=== PATIENT | female | born 1985 | race Native Hawaiian/Other Pacific Islander ===

== ENCOUNTER 2016-10-05 23:26 | Emergency (ER) | payer BC, OTHER ==
[2016-10-06 01:33] VITALS: BP 124/85
[2016-10-06] MEDS ORDERED: NORCO 10/325 PO ONE (05:01)
--- NOTE | 2016-10-06 05:05 | Emergency Department Report ---
HPI - General Chief Complaint: Skin Rash Time Seen by Provider: 10/06/16 04:37 - HPI HPI: Patient is a 31-year-old female presents to ED complaining of right breast pain and redness 3 weeks. Patient states she has not taken any medication for the patient. Patient states today she had some pus coming out of the right wrist. Patient states breast discharge with yellowish and some blood patient is a discharge is reduced with yellowish to clear tinged discharge. Patient states she has an appointment with the primary care doctor on Friday the and is scheduled for an ultrasound on October 09. Patient describes been asked throughout the nature. ED Past Medical Hx - Past Medical History Previous Medical History?: No - Surgical History Past Surgical History?: Yes Additional Surgical History: Depo inserted - Social History Smoking Status: Never Smoker Substance Use Type: None - Medications Home Medications: Home Medications Medication Instructions Recorded Confirmed Last Taken Type Butalb/Acetamin/Caff 50-325-40 1 each PO Q4H PRN #30 tablet 06/15/14 Unknown Rx [Fioricet] Ibuprofen [Motrin] 800 mg PO Q8H PRN #30 tablet 06/15/14 Unknown Rx Propylene Glycol/Peg 400 15 ml OS PRN PRN #1 drops 06/15/14 Unknown Rx [Lubricant Eye Drops] Valacyclovir HCl [Valtrex] 1,000 mg PO TID #7 day 06/15/14 Unknown Rx predniSONE [Deltasone] 40 mg PO QDAY 7 Days 06/15/14 Unknown Rx Acetaminophen/Codeine [Tylenol #3] 1 tab PO Q6H PRN #12 tab 10/06/16 Unknown Rx Clindamycin [Clindamycin CAP] 600 mg PO BID #20 capsule 10/06/16 Unknown Rx ED Review of Systems ROS: Stated complaint: HEADACHE, BREST PAIN, CHILLS Other details as noted in HPI Constitutional: denies: chills, fever Eyes: denies: eye pain, eye discharge, vision change ENT: denies: ear pain, throat pain Respiratory: denies: cough, shortness of breath, wheezing Cardiovascular: denies: chest pain, palpitations Endocrine: no symptoms reported. denies: excessive sweating Gastrointestinal: denies: abdominal pain, nausea, vomiting, diarrhea, constipation, hematemesis Genitourinary: denies: urgency, dysuria, frequency, hematuria, discharge, dyspareunia Musculoskeletal: denies: back pain, joint swelling, arthralgia Skin: denies: rash, lesions, pruritus Neurological: denies: headache, weakness, numbness, paresthesias, confusion, abnormal gait Psychiatric: denies: anxiety, depression Hematological/Lymphatic: denies: easy bleeding, easy bruising Physical Exam - Physical Exam Vital Signs: Vital Signs 10/06/16 01:29 Temperature 99.0 F Pulse Rate 80 Respiratory 18 Rate Blood Pressure 124/85 [Left] O2 Sat by Pulse 99 Oximetry Physical Exam: GENERAL: Alert and oriented x3, no apparent distress, Normal Gait, atraumatic. HEAD: Head is normocephalic and a-traumatic. EYES: Extra ocular muscles are intact. Pupils are equal, round, and reactive to light and accommodation. EARS: symetrical, atraumatic. gross auditory nml bilaterally. NOSE: Nose symetrical, Nontender,Nares appeared normal. MOUTH:Mouth is well hydrated and without lesions. Patent airways. NECK: Supple. Non edematous, No carotid bruits. No lymphadenopathy or thyromegaly. LUNGS: Symetrical with respiration, No wheezing, no rales or crackles, CTAB. HEART: S1, S2 present, regular rate and rhythm without murmur, no rubs, no gallops. ABDOMEN: No organomegaly was noted,Positive bowel sounds, soft, and non- distended. . Nontender to palpation on all Quadrants, NO CVA tenderness. BREAST: Symetrical, Supple bilaterally, right breast area surrounded by erythematous 4-5 cm in diameter around the areola. Active complaining lesion at 3:00 in respect to consider nipple. Severly tenderness to palpation. Drainage with manipulation of right areola. 5-6 cm mass palpated at 1o clock. EXTREMITIES/MUSCULOSKELETAL: No cyanosis, clubbing, rash, lesions or edema. Full ROM bilaterally. UE/LE Pulses 2+ bilaterally. PSYCHIATRIC: Mood is congruent with affect, denies suicidal or homicidal ideations. SKIN: Warm and dry, No lesions, No ulceration or induration present. ED Course Vital Signs 10/06/16 01:29 Temperature 99.0 F Pulse Rate 80 Respiratory 18 Rate Blood Pressure 124/85 [Left] O2 Sat by Pulse 99 Oximetry ED Medical Decision Making - Medical Decision Making 31-year-old female presents with Right breast cellulitis. ED course: Patient received 1 dose of Donald. Warm compression applied to the right breast. After 1 compression applied. More clear yellowish discharge from the open lesion. Discussed the patient is mass palpated in need for mammogram and patient states she has an appointment on Friday for diagnostic mammogram/US. And then follow up with the primary care. Vital signs stable. Patient is in no acute or respiratory distress. Discussed with patient follow-up with primary care physician. Discussed the patient and take antibiotic as prescribed and take pain medication as prescribed. Patient states she understands and states she just needed something for pain because it was unbearable Critical care attestation.: If time is entered above; I have spent that time in minutes in the direct care of this critically ill patient, excluding procedure time. ED Disposition Clinical Impression: Cellulitis of female breast, Cellulitis of right breast, Mass of right breast Disposition: DISCHARGED TO HOME OR SELFCARE Is pt being admited?: No Does the pt Need Aspirin: No Condition: Stable Instructions: Cellulitis (ED), Breast Mass (ED) Additional Instructions: keep yor appointment with her primary care on Friday and ultrasound appointment for October Prescriptions: Acetaminophen/Codeine [Tylenol #3] 1 tab PO Q6H PRN #12 tab PRN Reason: Pain Clindamycin [Clindamycin CAP] 600 mg PO BID #20 capsule Referrals: PRIMARY CARE, [Primary Care Provider] - 3-5 Days Forms: Accompanied Note, Work/School Release Form(ED) Time of Disposition: 06:34
== END 2016-10-06 07:06 | disposition home or self-care (01) ==
LOC: ED 23:26
DX: N61.0 Mastitis without abscess (principal)
CPT/HCPCS: 99282

== ENCOUNTER 2016-11-15 06:25 | Day surgery (SDC) | payer OTHER ==
[~2016-11-15 06:25] MED LIST: ANCEF/STERILE WATER 2 GM/20 ML 2 GM/20 ML SYRINGE IV NR; ceFAZolin 2 GM in NACL 0.9% 100 ML IV NR
--- NOTE | 2016-11-15 07:53 | Anesthesia Consultation ---
Anesthesia Consult and Med Hx - Airway Anesthetic Teeth Evaluation: Good ROM Head & Neck: Adequate Mental/Hyoid Distance: Adequate Mallampati Class: Class II Intubation Access Assessment: Good - Pulmonary Exam CTA: Yes - Cardiac Exam Cardiac Exam: RRR - Pre-Operative Health Status ASA Pre-Surgery Classification: ASA1 Proposed Anesthetic Plan: General (no previous anesthesia)
--- NOTE | 2016-11-15 07:53 | Anesthesia Day of Surgery ---
Anesthesia Day of Surgery - Day of Surgery Patient Examined: Yes Patient H&P Reviewed: Yes Patient is NPO: Yes
[2016-11-15] MEDS ORDERED: ceFAZolin 2 GM in NACL 0.9% 100 ML IV ONE (08:00)
[2016-11-15] MEDS ORDERED: PEPCID IV NR (08:10)
[2016-11-15] MEDS ORDERED: NACL 0.9% 1000 ML 1,000 ML IV SCH (08:10)
[2016-11-15] MEDS ORDERED: VERSED IV NR (08:10)
[2016-11-15] MEDS ORDERED: DIPRIVAN 10 MG/ML IV ONE (08:20)
[2016-11-15] MEDS ORDERED: XYLOCAINE MPF 2% ONE (08:21)
[2016-11-15] MEDS ORDERED: DILAUDID ONE (08:21)
[2016-11-15] MEDS ORDERED: MARCAINE 0.5% 30 ML INFILTRATI ONE (08:50)
[2016-11-15] MEDS ORDERED: XYLOCAINE 1%/ EPI 1:100,000 INFILTRATI ONE ×3 (08:50→09:23)
[2016-11-15] MEDS ORDERED: QUELICIN ONE (09:01)
[2016-11-15] MEDS ORDERED: DECADRON ONE (09:01)
[2016-11-15] MEDS ORDERED: MARCAINE 0.5% INFILTRATI ONE ×2 (09:23)
[2016-11-15] MEDS ORDERED: NACL 0.9% IR ONE (09:23)
[2016-11-15] MEDS ORDERED: ZOFRAN ONE (09:38)
--- NOTE | 2016-11-15 09:58 | Discharge Summary ---
Short Stay Discharge Plan Activity: other (december d/c when stable. reg diet. home health. d/c packing Friday am. irrigate wd with 50% h202/NS anibal pack with mesalt qd) Weight Bearing Status: Full Weight Bearing Diet: regular Wound: per wound nurse instructions Follow up with: LALEN GEORGE MD [Staff Physician] - 11/20/16
--- NOTE | 2016-11-15 10:26 | Operative Report ---
PREOPERATIVE DIAGNOSIS: Draining a large right breast mass, rule out abscess/mastitis. POSTOPERATIVE DIAGNOSIS: Draining a large right breast mass, rule out abscess/mastitis. FINDINGS: A very extensive friable as well as indurated mass with purulence throughout the area. The mass itself grossly is measured approximately 5-6 cm. A large portion of it was removed en bloc. Aerobic and anaerobic cultures were taken. Tissues also being sent fresh to pathology for frozen section as well as tissue cultures and permanent pathology. PROCEDURE: Wide excision and debridement of right breast mass as well as drainage and packing. SURGEON: Rosado MD ANESTHESIA: General. ESTIMATED BLOOD LOSS: Minimal. DRAINS: No drains. COMPLICATIONS: No complications. DESCRIPTION OF PROCEDURE: The patient was taken to the operating room, prepped and draped in usual sterile fashion. A 15-blade was used to make an elliptical incision in the areolar margin over the sinus tract drainage of the right breast mass previously described. Double skin hooks and subsequently Shannon retractors and [employer] were used to retract the skin and breast tissue. Electrocautery as well as sharp and blunt dissection were used to slowly dissect the majority of the inflamed infected tissue. The area was then irrigated copiously and dried. Hemostasis obtained with electrocauterization. Again, this tissue was sent fresh to pathology for frozen and cultures as well as permanent pathology. The abscess cavity was then packed with 2 inch iodoform gauze. A 0.5% Marcaine with epinephrine was infiltrated over the area for postoperative pain relief. Fluffs and pressure dressings applied. The patient tolerated the procedure well and left the OR in stable condition. JOB# [id number] ROSITA/LEANDRO
[2016-11-15] MEDS ORDERED: DILAUDID IV PRN (10:34)
--- NOTE | 2016-11-15 10:51 | Post Anesthesia Evaluation ---
- Post Anesthesia Evaluation Patient Participated: Yes Airway Patent: Yes Stable Respiratory Function: Yes Nausea/Vomiting: No Temp > 96.8F: Yes Pain Manageable: Yes Adequeate Hydration: Yes Anesthesia Complications: No
[2016-11-15 12:54] VITALS: BP 125/73
== END 2016-11-15 13:15 | disposition home or self-care (01) ==
LOC: OR 06:25
PROVIDERS: ATTEND Surgery
DX: N61.1 Abscess of the breast and nipple (principal); Z83.3 Family history of diabetes mellitus
CPT/HCPCS: 19120; 81025; 87075; 87116; 88305; 88331; J0330; J0690; J1100; J1170; J2250; J2405; J2704; J7030; 88307

== ENCOUNTER 2017-03-14 07:22 | Day surgery (SDC) | payer OTHER ==
[~2017-03-14 07:22] MED LIST changes: -ANCEF/STERILE WATER 2 GM/20 ML 2 GM/20 ML SYRINGE IV NR; +ANCEF/STERILE WATER 2 GM/20 ML IV NR; -ceFAZolin 2 GM in NACL 0.9% 100 ML IV NR
--- NOTE | 2017-03-14 07:58 | Anesthesia Day of Surgery ---
Anesthesia Day of Surgery - Day of Surgery Patient Examined: Yes Patient H&P Reviewed: Yes Patient is NPO: Yes
--- NOTE | 2017-03-14 07:58 | Anesthesia Consultation ---
Anesthesia Consult and Med Hx Date of service: 03/14/17 - Airway Anesthetic Teeth Evaluation: Good ROM Head & Neck: Adequate Mental/Hyoid Distance: Adequate Mallampati Class: Class I Intubation Access Assessment: Good - Pulmonary Exam CTA: Yes - Cardiac Exam Cardiac Exam: RRR - Pre-Operative Health Status ASA Pre-Surgery Classification: ASA2 Proposed Anesthetic Plan: General - Pulmonary Hx Smoking: No Hx Sleep Apnea: No (DESTIN PRE SCREEN NEGATIVE) - Cardiovascular System Hx Hypertension: No - Other Systems Hx Cancer: No - Additional Comments Anesthesia Medical History Comments: h/o [place] palsy
[2017-03-14] MEDS ORDERED: NACL BACTERIOSTATIC INFILTRATI ONE (08:07)
[2017-03-14 08:22] LABS: Basophils % (Auto) 0.3 % (0.0-1.8); Eosinophils % (Auto) 4.6 % (0.0-4.3); Hematocrit 44.7 % (30.3-42.9); Hemoglobin 15.6 gm/dl (10.1-14.3); Mean Corpuscular HGB Conc 35 % (30-34); Mean Corpuscular Hemoglobin 31 pg (28-32); Mean Corpuscular Volume 89 fl (79-97); Platelet Count 357 K/mm3 (140-440); Red Blood Count 5.01 M/mm3 (3.65-5.03); White Blood Count 9.9 K/mm3 (4.5-11.0)
[2017-03-14] MEDS ORDERED: MARCAINE 0.5% 0 ML INFILTRATI ONE (08:33)
[2017-03-14] MEDS ORDERED: MARCAINE-EPI/PF 0.5%-1:200,000 INFILTRATI ONE (08:34)
[2017-03-14] MEDS ORDERED: PERCOCET 5/325 PO PRN (09:00)
[2017-03-14] MEDS ORDERED: VERSED IV NR (09:00)
[2017-03-14] MEDS ORDERED: ZOFRAN IV PRN (09:00)
[2017-03-14] MEDS ORDERED: LACTATED RINGERS 1,000 ML IV SCH (09:00)
[2017-03-14] MEDS ORDERED: DIPRIVAN 10 MG/ML IV ONE (09:03)
[2017-03-14] MEDS ORDERED: XYLOCAINE MPF 2% ONE (09:04)
[2017-03-14] MEDS ORDERED: VERSED ONE (09:04)
[2017-03-14] MEDS ORDERED: DILAUDID ONE (09:04)
[2017-03-14] MEDS ORDERED: NACL 0.9% IR ONE (09:30)
[2017-03-14] MEDS ORDERED: MARCAINE-EPI 0.5%-1:200,000 INFILTRATI ONE (09:30)
[2017-03-14] MEDS ORDERED: HYDROGEN PEROXIDE ONE (09:39)
[2017-03-14] MEDS ORDERED: SUBLIMAZE ONE (09:46)
[2017-03-14] MEDS ORDERED: HYDROGEN PEROXIDE IRRIGATION ONE (09:54)
--- NOTE | 2017-03-14 10:10 | Discharge Summary ---
Short Stay Discharge Plan Activity: other (december d/c when stable. home health. d/c packing Mon am. irrigate wd with 50% h202/NS anibal. pack with mesalt qd. ) Weight Bearing Status: Partial Weight Bearing Diet: regular Wound: per wound nurse instructions Additional Instructions: aleve 1 po q6-8 hrs prn for breakthrough pain Follow up with: ALLEN GEORGE MD [Staff Physician] - 03/18/17
[2017-03-14] MEDS ORDERED: TORADOL ONE (10:25)
[2017-03-14] MEDS: DILAUDID IV PRN ×4 (10:35→11:05)
--- NOTE | 2017-03-14 10:51 | Post Anesthesia Evaluation ---
- Post Anesthesia Evaluation Patient Participated: Yes Airway Patent: Yes Stable Respiratory Function: Yes Temp > 96.8F: Yes Pain Manageable: Yes Adequeate Hydration: Yes Anesthesia Complications: No Block Receding Appropriately: Not Applicable
[2017-03-14 11:48] VITALS: BP 117/73
--- NOTE | 2017-03-14 14:20 | Operative Report ---
PREOPERATIVE DIAGNOSIS: Rule out left breast abscess. POSTOPERATIVE DIAGNOSIS: Extensive mastitis with chronic inflammation, purulence and left breast abscess formation involving the entire upper outer quadrant of the left breast and extending subareolar to the more medial portion of the breast. PROCEDURE: Wide excision and packing of chronically infected tissue and drainage of extensive left breast abscess. SURGEON: Mehdi Higgins MD ANESTHESIA: General. ESTIMATED BLOOD LOSS: Minimal. DRAINS: None. COMPLICATIONS: None. DESCRIPTION OF PROCEDURE: The patient was taken up to the operating room, prepped and draped in usual sterile fashion. The palpable indurated erythematous mass was clearly identifiable over the outer aspect of the left breast. A #15 blade was used to incise skin and subcutaneous tissue. Needle tip electrocautery was used to dissect down the breast tissue until the abscess cavity was encountered. A large amount of purulence was noted. Aerobic and anaerobic cultures were taken. Allis clamps were used to grasp the margins of the infected breast tissue. Shannon retractors and subsequently [employer] were used to retract the skin. The entire area was removed. Multitude of purulent pus pockets were encountered during the dissection. Pus was also noted to come out of the nipples. All this chronically infected tissue was removed and sent fresh to pathology once again for further cultures and permanent pathology. The extensive cavity was then copiously irrigated with a 50% Betadine peroxide solution. Subsequently irrigated with saline. Checked for hemostasis which was then controlled with electrocautery. Once again, this area was irrigated and dried. Checked for hemostasis and noted to be dry. The abscess cavity was packed with iodoform gauze. It was so extensive that it required 2 full 2 inch packing of iodoform gauze. Marcaine 0.5% with epinephrine was infiltrated over the skin edges and subcutaneous for postoperative pain relief. Fluff with pressure dressing was applied. The patient tolerated the procedure well and left the OR in stable condition. JOB# [id number] ROSITA/LEANDRO
== END 2017-03-14 12:28 | disposition home or self-care (01) ==
LOC: OR 07:22
PROVIDERS: ATTEND Surgery
DX: N61.1 Abscess of the breast and nipple (principal); G51.0 Bell's palsy
CPT/HCPCS: 19120; 36415; 85025; 87116; 88305; J0690; J1170; J1885; J2250; J2704; J3010; J7120; 88307

== ENCOUNTER 2021-04-04 23:46 | Emergency (ER) | payer OTHER ==
[2021-04-05 01:17] LABS: Basophils % (Auto) 0.1 % (0.0-1.8); Eosinophils # (Auto) 0.3 K/mm3 (0.0-0.4); Hematocrit 43.6 % (30.3-42.9); Hemoglobin 15.2 gm/dl (10.1-14.3); Lymphocytes # (Auto) 2.3 K/mm3 (1.2-5.4); Lymphocytes % (Auto) 15.3 % (13.4-35.0); Mean Corpuscular HGB Conc 35 % (30-34); Mean Corpuscular Volume 93 fl (79-97); Monocytes # (Auto) 0.8 K/mm3 (0.0-0.8); Monocytes % (Auto) 5.4 % (0.0-7.3); Platelet Count 334 K/mm3 (140-440); Red Cell Distribution Width 12.7 % (13.2-15.2)
[2021-04-05 01:44] LABS: Alanine Aminotransferase 56 units/L (7-56); Albumin 4.2 g/dL (3.9-5); Blood Urea Nitrogen 14 mg/dL (7-17); Calcium 9.2 mg/dL (8.4-10.2); Hemolysis Index 6
[2021-04-05 01:45] LABS: BUN/Creatinine Ratio 28
[2021-04-05 02:08] LABS: Bilirubin,Urine NEG (Negative); Blood,Urine SM (Negative); Color,Urine Yellow (Yellow); Mucus,Urine FEW /HPF; Protein,Urine <15 mg/dL mg/dL (Negative); Urobilinogen,Urine < 2.0 mg/dL (<2.0)
--- NOTE | 2021-04-05 07:09 | Emergency Department Report ---
<FAITH MILLAN - Last Filed: 04/05/21 07:03> ED Abdominal Pain HPI - General Chief Complaint: Abdominal Pain Stated Complaint: ABD PAIN, LT SHOULDER PAIN, CHEST PAIN Time Seen by Provider: 04/05/21 05:24 Source: patient Mode of arrival: Ambulatory Limitations: No Limitations - History of Present Illness Initial Comments: 35-year-old female is emerged from complaining epigastric pain that radiates to his her left shoulder and a aching burning fashion of an unknown etiology no palliative or provocative factors to her knowledge there is no diarrhea, no constipation, no hemoptysis no hematemesis no melena no hematochezia. No hematuria. She reports no trauma. No possibility for at this time. MD Complaint: abdominal pain Location: LUQ, RUQ, epigastric Improves With: nothing Associated Symptoms: nausea. denies: fever, chills, constipation, dysuria, hematemesis, melena, hematuria, anorexia - Related Data Home Medications Medication Instructions Recorded Confirmed Last Taken medroxyPROGESTERone ACETATE 150 mg IM [id number] 03/11/17 03/14/17 03/03/17 [Depo-Provera (Contraception)] Previous Rx's Medication Instructions Recorded Last Taken Type cephALEXin [Keflex] 500 mg PO Q6HR #28 capsule 03/14/17 Unknown Rx HYDROcodone/APAP 5-325 [[place] 1 - 2 each PO Q4HR PRN #12 tablet 04/05/21 Unknown Rx 5-325 mg TAB] Ondansetron [Zofran Odt] 4 mg PO Q8HR PRN #15 tab.rapdis 04/05/21 Unknown Rx Pantoprazole [Protonix] 40 mg PO QDAY #30 tablet 04/05/21 Unknown Rx Allergies Allergy/AdvReac Type Severity Reaction Status Date / Time No Known Allergies Allergy Verified 04/05/21 00:42 ED Review of Systems Comment: All other systems reviewed and negative ED Past Medical Hx - Past Medical History Previous Medical History?: No Hx Hypertension: No - Surgical History Past Surgical History?: Yes Hx Breast Surgery: Yes (I&D RT BREAST 11/2016) Additional Surgical History: Depo inserted - Social History Smoking Status: Never Smoker Substance Use Type: None - Medications Home Medications: Home Medications Medication Instructions Recorded Confirmed Last Taken Type medroxyPROGESTERone ACETATE 150 mg IM [id number] 03/11/17 03/14/17 03/03/17 History [Depo-Provera (Contraception)] cephALEXin [Keflex] 500 mg PO Q6HR #28 capsule 03/14/17 Unknown Rx HYDROcodone/APAP 5-325 [[place] 1 - 2 each PO Q4HR PRN #12 tablet 04/05/21 Unknown Rx 5-325 mg TAB] Ondansetron [Zofran Odt] 4 mg PO Q8HR PRN #15 tab.rapdis 04/05/21 Unknown Rx Pantoprazole [Protonix] 40 mg PO QDAY #30 tablet 04/05/21 Unknown Rx ED Physical Exam - General Limitations: No Limitations General appearance: alert, in no apparent distress - Head Head exam: Present: atraumatic, normocephalic - Eye Eye exam: Present: normal appearance - ENT ENT exam: Present: mucous membranes moist - Neck Neck exam: Present: normal inspection - Respiratory Respiratory exam: Present: normal lung sounds bilaterally. Absent: respiratory distress - Cardiovascular Cardiovascular Exam: Present: regular rate, normal rhythm. Absent: systolic murmur, diastolic murmur, rubs, gallop - GI/Abdominal GI/Abdominal exam: Present: soft, tenderness (Right upper quadrant pain/epigastric tenderness/left upper quadrant pain.), normal bowel sounds, other (Questionable Quintero sign). Absent: guarding, rebound, mass, bruit - Extremities Exam Extremities exam: Present: normal inspection - Back Exam Back exam: Present: normal inspection - Neurological Exam Neurological exam: Present: alert, oriented X3 - Psychiatric Psychiatric exam: Present: normal affect, normal mood - Skin Skin exam: Present: warm, dry, intact, normal color. Absent: rash ED Medical Decision Making - Lab Data Result diagrams: 04/05/21 00:50 04/05/21 00:50 - Medical Decision Making This patient presents with abdominal pain of unclear etiology. Their evaluation has not identified a emergent etiology for the abdominal pain. Specifically given the examination, laboratory findings but lack of significant risk factors have low suspicion, for appendicitis, ischemic bowel, bowel perforation, or any other life threatening disease. I have discussed with the patient the level of uncertainty with undifferentiated abdominal pain due to the pain location and transfers to the shoulder level move forward with an ultrasound of her abdomen although I feel that gallbladder involvement as possible but probably unlikely. She reports burning pain occasional taste in the mouth which may indicate some peptic ulcer process acid reflux process. If so we will move forward with PPI and the appropriate antimicrobial treatment for peptic ulcer disease. Signed out do Anyi LOPEZ ED Disposition Clinical Impression: Cholelithiasis Disposition: HOME / SELF CARE / HOMELESS Condition: Stable Instructions: Cholelithiasis, [id number], Gallbladder Eating Plan, Abdominal Pain (ED) Additional Instructions: Take the norco, zofran, and protonix as prescribed. It is important that you follow the gallbladder diet in plan and avoid fried fatty greasy foods. Is important that you follow-up with your primary care doctor and or general surgeon listed on your discharge instruction. Return to the ER if your pain worsens in any way and you develop fever of 100.5 or higher. Prescriptions: HYDROcodone/APAP 5-325 [[place] 5-325 mg TAB] 1 - 2 each PO Q4HR PRN #12 tablet PRN Reason: Pain Pantoprazole [Protonix] 40 mg PO QDAY #30 tablet Ondansetron [Zofran Odt] 4 mg PO Q8HR PRN #15 tab.rapdis PRN Reason: Nausea Referrals: PRIMARY CARE, [Primary Care Provider] - 3-5 Days MARINA DIETZ DO [Staff Physician] - 3-5 Days (General Surgeon) Forms: Work/School Release Form(ED) Print Language: ARABIC <MAGI LONG. - Last Filed: 04/05/21 08:17> ED Review of Systems ROS: Stated complaint: ABD PAIN, LT SHOULDER PAIN, CHEST PAIN Other details as noted in HPI ED Course Vital Signs 04/05/21 00:40 Temperature 98.3 F Pulse Rate 69 Respiratory 18 Rate Blood Pressure 123/73 [Left] O2 Sat by Pulse 100 Oximetry ED Medical Decision Making - Lab Data Result diagrams: 04/05/21 00:50 04/05/21 00:50 - Medical Decision Making 2003: Patient currently resting comfortably. She states that she is feeling better. She does not appear to be in any acute distress. She is not toxic or ill- appearing. Repeat abdominal exam shows soft nontender abdomen. Ultrasound report reviewed with patient and shows cholelithiasis with no acute cholecystitis. Discussed with patient the diagnosis of cholelithiasis, and recommend outpatient follow-up with general surgeon. There is no indication for additional testing, emergent general surgery consult or admission at this time. Diet changes such as avoiding fried fatty greasy foods were also discussed with patient as well as s/s to look for for which she should return to ED. Patient expressed understanding of all instructions and agree with plan. Patient stable at time of discharge. Critical care attestation.: If time is entered above; I have spent that time in minutes in the direct care of this critically ill patient, excluding procedure time. ED Disposition Is pt being admited?: No Does the pt Need Aspirin: No Time of Disposition: 08:09
--- NOTE | 2021-04-05 07:55 | Ultrasound Report ---
LIMITED RUQ ABDOMINAL ULTRASOUND INDICATION: ruq pain. COMPARISON: No relevant prior imaging study available. FINDINGS: Pancreas: Visualized portions show no significant abnormality. Abdominal Aorta: Normal size. IVC: No significant abnormality. Liver: The liver measures 16.4 cm in length. Diffusely echogenic appearance. Normal hepatopedal bloo d flow in the main portal vein. Gallbladder: 2.4 cm gallbladder near the neck of the gallbladder with no gallbladder wall thickening or pericholecystic fluid. No sonographic Quintero sign and the stone is mobile. Bile ducts: No significant abnormality. Common bile duct measures 4 mm. Right kidney: No significant abnormality visualized.. Free fluid: None. Additional Findings: None. IMPRESSION: 1. Diffusely echogenic appearance of the liver, most commonly seen with steatosis. 2. Cholelithiasis Signer Name: Benjamin Rehman MD Signed: 04/05/2021 7:50 AM Workstation Name: [id number]
[2021-04-05 09:39] VITALS: BP 120/69
== END 2021-04-05 09:00 | disposition home or self-care (01) ==
LOC: ED 23:46
DX: K80.20 Calculus of gallbladder without cholecystitis without obstruction (principal); Z98.890 Other specified postprocedural states
CPT/HCPCS: 36415; 76705; 80053; 81001; 83690; 84703; 85025; 99284

== ENCOUNTER 2021-05-22 10:24 | Day surgery (SDC) | payer OTHER ==
[2021-05-15 10:39] LABS: Hematocrit 41.9 % (30.3-42.9); Hemoglobin 14.7 gm/dl (10.1-14.3); Mean Corpuscular HGB Conc 35 % (30-34); Mean Corpuscular Volume 93 fl (79-97); Platelet Count 341 K/mm3 (140-440); Red Blood Count 4.52 M/mm3 (3.65-5.03); Red Cell Distribution Width 12.9 % (13.2-15.2)
[2021-05-15 10:44] LABS: Alanine Aminotransferase 25 units/L (7-56); Albumin 4.5 g/dL (3.9-5); Blood Urea Nitrogen 9 mg/dL (7-17); Hemolysis Index 4
[2021-05-15 10:48] LABS: BUN/Creatinine Ratio 18
[~2021-05-22 10:24] MED LIST changes: +ACETAMINOPHEN 500 MG TAB PO SCH; -ANCEF/STERILE WATER 2 GM/20 ML IV NR; +CELECOXIB 200 MG CAP PO NR; +GABAPENTIN 300 MG CAP PO NR; +LACTATED RINGERS 1,000 ML IV SCH; +MIDAZOLAM 2 MG/2 ML INJ IV NR; +SCOPOLAMINE TRANSDERMAL PATCH 72 HR TD NR; +ceFAZolin/STERILE WATER 2 GM/20 ML SYRINGE IV NR
--- NOTE | 2021-05-22 11:03 | Anesthesia Consultation ---
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
[2021-05-22] MEDS ORDERED: HYDROmorphone 1 MG/1 ML INJ IV PRN (11:04)
[2021-05-22] MEDS ORDERED: ONDANSETRON 4 MG/2 ML INJ IV PRN (11:04)
[2021-05-22] MEDS ORDERED: oxyCODONE /ACETAMINOPHEN 5-325MG TAB PO PRN (11:04)
--- NOTE | 2021-05-22 11:04 | Anesthesia Day of Surgery ---
Anesthesia Day of Surgery - Day of Surgery Patient Examined: Yes Patient H&P Reviewed: Yes Patient is NPO: Yes
[2021-05-22] MEDS ORDERED: fentaNYL 100 MCG/2 ML INJ ONE (11:21)
[2021-05-22] MEDS ORDERED: propofoL 200 MG/20 ML VIAL IV ONE (11:21)
[2021-05-22] MEDS ORDERED: BUPIVACAINE/PF (0.25%) 2.5 MG/ML 30 ML VIAL INFILTRATI ONE ×2 (11:43→12:16)
[2021-05-22] MEDS ORDERED: LIDOCAINE (1%) 10 MG/1 ML VIAL 20 ML MDV ONE (11:43)
[2021-05-22] MEDS ORDERED: KETAMINE/STERILE WATER 50 MG/ML SYRINGE ONE (11:47)
[2021-05-22] MEDS ORDERED: dexAMETHasone 20 MG/5 ML VIAL ONE (11:55)
[2021-05-22] MEDS ORDERED: ROCURONIUM 50 MG/5 ML INJ IV ONE (11:55)
[2021-05-22] MEDS ORDERED: ONDANSETRON 4 MG/2 ML INJ ONE ×2 (11:55→12:30)
[2021-05-22] MEDS ORDERED: LIDOCAINE MPF (2%) 20 MG/1 ML VIAL 5 ML ONE (11:56)
[2021-05-22] MEDS ORDERED: WATER FOR IRRIG STERILE 1,500 ML BOTTLE IR ONE (12:16)
[2021-05-22] MEDS ORDERED: LIDOCAINE (1%) 10 MG/1 ML VIAL 20 ML MDV INFILTRATI ONE (12:16)
[2021-05-22] MEDS ORDERED: NEOSTIGMINE 10MG/10 ML INJ MDV ONE (12:33)
[2021-05-22] MEDS ORDERED: GLYCOPYRROLATE 0.4 MG/2 ML INJ ONE (12:34)
--- NOTE | 2021-05-22 12:42 | Short Stay Summary ---
Short Stay Documentation Date of service: 05/22/21 - History Principal diagnosis: Symptomatic cholelithiasis H&P: obtained from office - Allergies and Medications Current Medications: Allergies No Known Allergies Allergy (Verified 04/05/21 00:42) Home Medications Medication Instructions Recorded Confirmed Last Taken Type No Known Home Medications [No 05/11/21 05/11/21 Unknown History Reported Home Medications] Active Medications Acetaminophen (Acetaminophen 500 Mg Tab) 1,000 mg PO PREOP NAZANIN Stop: 05/22/21 20:00 Last Admin: 05/22/21 10:45 Dose: 1,000 mg Documented by: Cefazolin Sodium (Cefazolin/Sterile Water 2 Gm/20 Ml Syringe) 2 gm IV PREOP NR Stop: 05/22/21 21:00 Celecoxib (Celecoxib 200 Mg Cap) 200 mg PO PREOP NR Stop: 05/22/21 20:00 Last Admin: 05/22/21 10:45 Dose: 200 mg Documented by: Gabapentin (Gabapentin 300 Mg Cap) 300 mg PO PREOP NR Stop: 05/22/21 20:00 Last Admin: 05/22/21 10:45 Dose: 300 mg Documented by: Hydromorphone HCl (Hydromorphone 1 Mg/1 Ml Inj) 0.5 mg IV Q10MIN PRN PRN Reason: Pain , Severe (7-10) Stop: 05/23/21 11:03 Lactated Ringer's (Lactated Ringers) 1,000 mls @ 100 mls/hr IV DIRECT NAZANIN Stop: 05/22/21 23:59 Last Admin: 05/22/21 10:50 Dose: 100 mls/hr Documented by: Midazolam HCl (Midazolam 2 Mg/2 Ml Inj) 2 mg IV PREOP NR Stop: 05/22/21 20:00 Last Admin: 05/22/21 11:00 Dose: 2 mg Documented by: Ondansetron HCl (Ondansetron 4 Mg/2 Ml Inj) 4 mg IV ONCE PRN PRN Reason: Nausea And Vomiting Oxycodone/Acetaminophen (Oxycodone /Acetaminophen 5-325mg Tab) 1 tab PO ONCE PRN PRN Reason: Pain, Moderate (4-6) Scopolamine (Scopolamine Transdermal Patch 72 Hr) 1 each TD PREOP NR Stop: 05/22/21 20:00 Last Admin: 05/22/21 10:45 Dose: 1 each Documented by: - Brief post op/procedure progress note Date of procedure: 05/22/21 Pre-op diagnosis: Calculus of gallbladder without cholecystitis Post-op diagnosis: same Procedure: Laparoscopic cholecystectomy Anesthesia: GETA, local Findings: Gallbladder with large stone and adhesions to omentum Surgeon: MARINA DIETZ (Pathology Teacher: Yadiel, APARTMENT MAINTENANCE TECHNICIAN) Estimated blood loss: minimal Pathology: list (Gallbladder) Specimen disposition: to lab Condition: stable - Hospital course Hospital course: Patient observed in PACU and discharged home in stable condition when criteria met - Disposition Condition at discharge: Good Disposition: 01 HOME / SELF CARE / HOMELESS Short Stay Discharge Plan Activity: other (No driving while taking prescription pain medications. No heavy lifting for 2 weeks) Diet: regular Wound: open to air, per your surgeon's advice Additional Instructions: See printed discharge instructions Follow up with: PRIMARY CARE, [Primary Care Provider] - 7 Days MARINA DIETZ DO [Staff Physician] - 14 Days Prescriptions: HYDROcodone/APAP 5-325 [S[place] 5/325] 1 each PO Q6HR PRN #20 tablet PRN Reason: Pain , Severe (7-10)
--- NOTE | 2021-05-22 13:11 | Operative Report ---
Operative Report Operative Report: Date of procedure: 05/22/21 Pre-op diagnosis: Calculus of gallbladder without cholecystitis Post-op diagnosis: same Procedure: Laparoscopic cholecystectomy Anesthesia: GETA, local Findings: Gallbladder with large stone and adhesions to omentum Surgeon: MARINA DIETZ (Technical Solutions Director: RENA Cotto) Estimated blood loss: minimal Pathology: list (Gallbladder) Specimen disposition: to lab Condition: stable Hospital course: Patient observed in PACU and discharged home in stable condition when criteria met HPI an indication: 35-year-old female who presented to the surgery clinic with complaints of intermittent sharp right upper quadrant abdominal pain. All appropriate lab and imaging studies were reviewed. Ultrasound of the abdomen revealed a mobile large gallstone. It was recommended that the patient undergo cholecystectomy. All risks, benefits, alternatives to surgery were discussed in detail and questions answered. Consent was obtained for laparoscopic, possible open cholecystectomy, possible cholangiogram. Procedure in detail: The patient was identified in the preoperative area and taken back to the operating room, placed on the operating room table in supine position. After anesthesia was induced, the abdomen was prepped and draped in usual sterile fashion and timeout was performed. Local anesthetic was infiltrated into all of the skin incision sites. A aster incision was made in the umbilicus through which a Veress needle was inserted. The Veress needle positioning was confirmed using saline drop test and the abdomen insufflated to 15 mmHg without incident. A 5 mm supraumbilical incision was made through which a 5mm Optiview trocar was placed. The abdomen was inspected and there was no underlying injury to any of the abdominal structures. The Veress needle was removed. The gallbladder was visualized. An additional 12 mm subxyphoid port, 5 mm RUQ, and 5 mm right lateral abdominal ports were placed under direct visualization. The patient was then placed into reverse Trendelberg and tilted to the left. The gallbladder was retracted cephalad and above the liver. The cystic duct and artery were carefully skeletonized. The medial and lateral pe ritoneal attachments to the gallbladder were dissected using a combination of blunt dissection with the [place] and hook electrocautery. The cystic duct and artery were the only 2 structures seen entering the gallbladder and the critical view was successfully obtained. 3 clips were placed on the proximal aspect of the cystic duct and 1 distally and this was transected in between the clips using EndoShears. 2 clips were placed on the proximal aspect of the cystic artery and 1 distally this was transected in between the clips using EndoShears. The gallbladder was dissected from the liver bed using electrocautery. The gallbladder was placed into a Endo Catch bag and removed from the abdomen via the 12mm port. The gallbladder contained a large stone. The gallbladder fossa was then inspected and there was no identifiable bleeding or bile leakage. Hemostasis was ensured. The clips on the cystic duct and artery were visualized and intact. The patient was then placed into neutral position. The 12 mm port fascia was closed with interrupted 0 Vicryl stitch x2 using the Pietro Gamboa device. The remaining ports were removed under direct visualization. Skin incisions were closed with 4-0 Monocryl subcuticular stitches and skin glue. All skin incisions were once again infiltrated with local anesthetic. At the end case all sponge, instrument, sharp counts were correct 2. The patient was awoken from anesthesia, extubated, and taken to PACU in stable condition.
[2021-05-22 18:26] VITALS: BP 128/82
== END 2021-05-22 10:25 | disposition home or self-care (01) ==
LOC: OR 10:24
PROVIDERS: ATTEND Surgery
DX: K80.10 Calculus of gallbladder with chronic cholecystitis without obstruction (principal); Z20.822 Contact with and (suspected) exposure to COVID-19; G51.0 Bell's palsy; E66.9 Obesity, unspecified; Z68.34 Body mass index [BMI] 34.0-34.9, adult; Z79.899 Other long term (current) drug therapy; Z98.890 Other specified postprocedural states
CPT/HCPCS: 36415; 47562; 80053; 81025; 84703; 85027; 88304; J0690; J1100; J1170; J2250; J2405; J2704; J2710; J3010; J3490; J7120; U0003